=== PATIENT | female | born 1995 | race Caucasian/White ===

== ENCOUNTER 2017-02-07 16:34 | Emergency (ER) | payer SELFPAY ==
[~2017-02-07] VITALS: Ht 172.7 cm; Wt 105.0 kg
[~2017-02-07 16:34] MED LIST: BACT800T5 PO; CEPH500C3 PO; IBUP600 PO; PERI8.6T PO; PREN0.01 PO
[2017-02-07 16:36] VITALS: BP 140/85; PULSE 105; RESP 20; TEMP 99.4; O2SAT 95
--- NOTE | 2017-02-07 17:26 | PD ---
HPI Chief Complaint: Skin Problem Time Seen by Provider: 17:11 Travel History International Travel<30 days: No Contact w/Intl Traveler<30days: No Traveled to known affect area: No History of Present Illness HPI 21-year-old female with history of recurrent pilonidal abscess presents to the emergency room for evaluation of the same. States this episode started 3 days ago. Pain is severe when she sits down or touches the area. Patient reports mild spontaneous drainage. She denies fever, chills, nausea, vomiting. PFSH Past Medical History Hx Anticoagulant Therapy: No Cardiovascular Problems: No Chemotherapy: No Cerebrovascular Accident: No Diabetes: No Diminished Hearing: No Genitourinary: Yes (HERPES) Respiratory: No Immunizations Current: Yes Migraines: Yes Tetanus Vaccination: < 5 Years ?: Not LMP: IUD : 0 Para: 0 Past Surgical History Hysterectomy: No Social History Alcohol Use: No Tobacco Use: Yes (1-3 cigg a day ) Substance Use: Yes (MARIJUANA OCCASIONALLY) Allergies-Medications (Allergen,Severity, Reaction): Coded Allergies: No Known Allergies (Verified , 02/07/17) Reported Meds & Prescriptions Reported Meds & Active Scripts Active Keflex (Cephalexin Monohydrate) 500 Mg Cap 500 Mg PO Q6 10 Days Bactrim DS (Sulfamethoxazole-Trimethoprim DS) 1 Tab Tab 1 Tab PO Q12HR 10 Days Ami-Colace 8.6-50 mg (Sennosides-Docusate Sodium) 1 Tab Tab 2 Tab PO Q12H PRN Motrin 600 Mg Tab (Ibuprofen) 600 Mg Tab 600 Mg PO Q6H PRN Reported Vit ( Plus) (Prenat Multivit/Vantage/Iron/Folic Ac) Tab 1 Tab PO DAILY Review of Systems Except as stated in HPI: all other systems reviewed are Neg Physical Exam Narrative GENERAL: Well-nourished, well-developed female in no acute distress. Afebrile. Ambulatory. SKIN: Focused skin assessment warm/dry. There is an indurated area in the proximal intergluteal cleft which measures about 4 cm in diameter. It is fluctuant but there is no pointing or drainage. There is a zone of inflammation around it but no lymphangitis. HEAD: Normocephalic. EYES: No scleral icterus. No injection or drainage. NECK: Supple, trachea midline. No JVD or lymphadenopathy. CARDIOVASCULAR: Regular rate and rhythm without murmurs, gallops, or rubs. RESPIRATORY: Breath sounds equal bilaterally. No accessory muscle use. PSYCHIATRIC: No delusional thought processes. No hallucinations. Data Data Last Documented VS Vital Signs Date Time Temp Pulse Resp B/P (MAP) Pulse Ox O2 Delivery O2 Flow Rate FiO2 02/07/17 16:36 99.4 105 20 140/85 (103) 95 Room Air Orders Orders Lidocaine 1% Inj (50 Ml) (Xylocaine 1% I (02/07/17 17:30) Ed Discharge Order (02/07/17 17:39) [facility] Medical Decision Making Medical Screen Exam Complete: Yes Emergency Medical Condition: Yes Medical Record Reviewed: Yes Differential Diagnosis Abscess, pilonidal abscess, cellulitis, folliculitis Narrative Course 21-year-old female with history of recurrent pilonidal abscesses presents to the emergency room for the same. This episode started 3 days ago. No systemic signs of infection. Vital signs stable. Patient resting comfortably. Physical exam reveals 4 cm area of induration without spontaneous drainage in the proximal intergluteal cleft. No lymphangitis. Tender to palpation. Abscess was drained, see procedure for details. Patient discharged with Bactrim and told to follow-up with a primary care physician or return for worsening symptoms. She understands and agrees to plan. Procedures Procedure Narrative INCISION AND DRAINAGE OF ABSCESS: The area was prepped and was sterilely draped. A subcutaneous wheal of 1% lidocaine with a total number for mL was used to anesthetize the area properly. A number 11 scalpel was used to make a 1 cm incision across the area of the abscess. The abscess was drained, complex loculations were broken down, and irrigated with normal saline. Cultures were obtained. Sterile dressing applied. Diagnosis Primary Impression: Pilonidal abscess Referrals: Primary Care Physician Additional Instructions: Rest and drink plenty of fluids. Take Bactrim as directed, until gone. Follow up with a primary care physician. Return to emergency room for worsening symptoms, as discussed. Med/Other Pt SpecificInfo: Prescription(s) given Disposition: 01 DISCHARGE HOME Condition: Stable Cynthia Kaplan Feb 07, 2017 17:26
[2017-02-07] MEDS ORDERED: LIDOCAINE HCL 1% 50 ML VIAL INFIL ONE (17:30)
[2017-02-07] MEDS ORDERED: BACT800T5 PO (17:41)
== END 2017-02-07 17:53 | disposition home or self-care (01) ==
LOC: NEPK 16:34
DX: L05.01 Pilonidal cyst with abscess (principal); F17.210 Nicotine dependence, cigarettes, uncomplicated; Z79.899 Other long term (current) drug therapy
CPT/HCPCS: 10080

== ENCOUNTER 2017-02-10 17:39 | Emergency (ER) | payer SELFPAY ==
[~2017-02-10] VITALS: Ht 172.7 cm; Wt 100.0 kg
[2017-02-10 17:40] VITALS: BP 140/92; PULSE 112; RESP 20; TEMP 99.6; O2SAT 97
--- NOTE | 2017-02-10 18:23 | PD ---
HPI Chief Complaint: Lump, Cyst, Hernia Time Seen by Provider: 18:17 Travel History International Travel<30 days: No Contact w/Intl Traveler<30days: No Traveled to known affect area: No History of Present Illness HPI 21-year-old Afro-[place] female presents to the verge department with recurrent abscess to the pilonidal region. Patient was here 2 days ago and had I&D warm without packing placed. Patient is currently on Bactrim DS. Patient states increased pain and swelling in the area. She denies any drainage since the day before yesterday. Pain is currently 8 out of 10. Worse with sitting or movement. As fever, chills, change in bowel or bladder. She has no known drug allergies PFSH Past Medical History Hx Anticoagulant Therapy: No Cardiovascular Problems: No Chemotherapy: No Cerebrovascular Accident: No Diabetes: No Diminished Hearing: No Genitourinary: Yes (HERPES) Respiratory: No Immunizations Current: Yes Migraines: Yes ?: Not : 0 Para: 0 Past Surgical History Hysterectomy: No Social History Alcohol Use: No Tobacco Use: Yes (1-3 cigg a day ) Substance Use: Yes (MARIJUANA OCCASIONALLY) Allergies-Medications (Allergen,Severity, Reaction): Coded Allergies: No Known Allergies (Verified , 02/10/17) Reported Meds & Prescriptions Reported Meds & Active Scripts Active Bactrim DS (Sulfamethoxazole-Trimethoprim) 800-160 Mg Tab 1 Tab PO BID Review of Systems Except as stated in HPI: all other systems reviewed are Neg General / Constitutional: No: Fever Eyes: No: Visual changes HENT: No: Headaches Cardiovascular: No: Chest Pain or Discomfort Respiratory: No: Shortness of Breath Gastrointestinal: No: Abdominal Pain Genitourinary: No: Dysuria Musculoskeletal: No: Pain Skin: Positive Lesions (see history present illness), No Rash Neurologic: No: Weakness Psychiatric: No: Depression Endocrine: No: Polydipsia Hematologic/Lymphatic: No: Easy Bruising Physical Exam Narrative GENERAL: Patient appears in moderate distress. SKIN: Warm and dry. Normal color. Normal turgor. Patient has obvious indurated tender erythematous warm pilonidal cyst with pointing noted. No expressible drainage is noted. HEAD: Atraumatic. Normocephalic. EYES: Pupils equal and round. No scleral icterus. No injection or drainage. ENT: No nasal bleeding or discharge. Mucous membranes pink and moist. Pharynx is clear. Airway is patent NECK: Trachea midline. Supple nontender. CARDIOVASCULAR: Regular rate and rhythm. RESPIRATORY: No accessory muscle use. Clear to auscultation. Breath sounds equal bilaterally. MUSCULOSKELETAL: Extremities without clubbing, cyanosis, or edema. No obvious deformities. NEUROLOGICAL: Awake and alert. No obvious cranial nerve deficits. Motor grossly within normal limits. Five out of 5 muscle strength in the arms and legs. Normal speech. PSYCHIATRIC: Appropriate mood and affect; insight and judgment normal. Data Data Last Documented VS Vital Signs Date Time Temp Pulse Resp B/P (MAP) Pulse Ox O2 Delivery O2 Flow Rate FiO2 02/10/17 17:40 99.6 112 20 140/92 (108) 97 Room Air Orders Orders Lidocai-Epi 2%-1:100,000 Inj (Xylocaine- (02/10/17 18:30) MDM Medical Decision Making Medical Screen Exam Complete: Yes Emergency Medical Condition: Yes Medical Record Reviewed: Yes Differential Diagnosis Cellulitis. MRSA. Recurrent abscess. Pilonidal cyst. Narrative Course Cysts I&D with packing placed. Wound instructions were reviewed with the patient. She should continue ibuprofen, and Bactrim as previously prescribed. Patient should return in 2 days for wound check and packing removal and possible repack. Patient can return sooner with worsening symptoms as needed. Procedures Procedure Narrative After the risks and benefits were discussed the following procedure was performed: INCISION AND DRAINAGE OF ABSCESS: The area was prepped and was sterilely draped. A subcutaneous wheal of 2 % Xylocaine with epi with a total number 4 mL was used to anesthetize the area. The area was properly anesthetized. A number 11 scalpel was used to make a 1-cm incision across the area of the abscess. Cultures were obtained. The abscess was drained an irrigated with normal saline. Quarter inch iodoform packing was placed in the wound. Sterile dressing applied. Patient advised to have packing removed in two days. Diagnosis Primary Impression: Pilonidal cyst with abscess Patient Instructions: Abscess Incision and Drainage (DC), General Instructions , Pilonidal Cyst (ED) Additional Instructions: Cysts I&D with packing placed. Wound instructions were reviewed with the patient. She should continue ibuprofen, and Bactrim as previously prescribed. Patient should return in 2 days for wound check and packing removal and possible repack. Patient can return sooner with worsening symptoms as needed. Med/Other Pt SpecificInfo: No Change to Meds, Wound Care Disposition: 01 DISCHARGE HOME Condition: Stable Zuhair Aleman Feb 10, 2017 18:23
[2017-02-10] MEDS ORDERED: LIDOCAINE 2%/EPINEPHrine 1:100,000 20ML MDV NERV BLOCK ONE (18:30)
== END 2017-02-10 19:12 | disposition home or self-care (01) ==
LOC: NEPK 17:39
DX: L05.01 Pilonidal cyst with abscess (principal); F17.210 Nicotine dependence, cigarettes, uncomplicated
CPT/HCPCS: 10080